=== PATIENT | female | born 1985 | race Caucasian/White ===

== ENCOUNTER 2016-09-18 01:09 | Emergency (ER) | payer MEDICAID ==
[~2016-09-18] VITALS: Ht 180.3 cm; Wt 100.0 kg
[2016-09-18] MEDS ORDERED: SODIUM CHLORIDE 0.9% 1,000ML IVBOLUS ONE ×2 (01:30→02:30)
[2016-09-18] MEDS ORDERED: ONDANSETRON 2MG/ML, 2ML IVPush ONE (01:30)
[2016-09-18] MEDS ORDERED: FAMOTIDINE 20 MG/2 ML IVP ONE (01:30)
[2016-09-18] MEDS ORDERED: SODIUM CHLORIDE FLUSH 10ML SYR IVF ONE (01:30)
[2016-09-18 01:45] LABS: ASPARTATE AMINO TRANSFERASE 20 U/L (15-37); BLOOD UREA NITROGEN 5 mg/dL (7-18)
[2016-09-18] MEDS ORDERED: PRE-NATAL (01:46)
[2016-09-18] MEDS ORDERED: POTASSIUM CHLORIDE 10% 20 MEQ/15 ML UDC PO ONE (02:00)
[2016-09-18] MEDS ORDERED: ACETAMINOPHEN 325 MG TABLET PO ONE (02:00)
[2016-09-18] MEDS ORDERED: POTASSIUM CHLORIDE 20 MEQ TAB.ER.PRT ONE (02:33)
[2016-09-18] MEDS ORDERED: ACETAMINOPHEN 325 MG TABLET ONE (02:33)
[2016-09-18] MEDS ORDERED: ONDANSETRON 2MG/ML, 2ML ONE (02:34)
[2016-09-18] MEDS ORDERED: FAMOTIDINE 20 MG/2 ML ONE (02:34)
[2016-09-18 05:28] VITALS: BP 129/76
== END 2016-09-18 05:32 | disposition home or self-care (01) ==
LOC: ED 05:14
DX: O26.892 Other specified pregnancy related conditions, second trimester (principal); O21.9 Vomiting of pregnancy, unspecified; R11.0 Nausea; R19.7 Diarrhea, unspecified; E86.0 Dehydration; E87.1 Hypo-osmolality and hyponatremia; E87.6 Hypokalemia; Z3A.16 16 weeks gestation of pregnancy
CPT/HCPCS: 36415; 76805; 80053; 81001; 83605; 84145; 85025; 87040; 96361; 96374; 96375; 99285; J2405; J7030; S0028